=== PATIENT | male | born 1960 | race Two or more races ===

== ENCOUNTER 2018-04-03 10:01 | Inpatient (IN) | payer OTHER ==
[~2018-04-03] VITALS: Ht 170.2 cm; Wt 88.0 kg
[2018-04-03] MEDS ORDERED: LEVO-T25 MCG PO (13:58)
[2018-04-03] MEDS ORDERED: METFORMIN HCL500 MG PO (13:58)
[2018-04-03] MEDS ORDERED: GABAPENTIN800 MG PO (13:58)
[2018-04-03] MEDS ORDERED: TRAMADOL HCL50 MG PO (13:59)
[2018-04-03] MEDS ORDERED: GLYCOTROL CAPS1 EACH PO (13:59)
[2018-04-03] MEDS ORDERED: VITAMIN D31000 UNI1 PO (14:00)
[2018-04-11] MEDS ORDERED: GABAPENTIN800 MG PO (09:50)
[2018-04-11] MEDS ORDERED: DOCUSATE SODIU100 MG PO (09:50)
[2018-04-11] MEDS ORDERED: AMOX-CLAV 875-1 EACH PO (09:51)
[2018-04-11] MEDS ORDERED: PERCOCET 5-3251 EACH PO (09:52)
[2018-04-11] MEDS ORDERED: CLONAZEPAM1 MG PO (09:52)
== END 2018-04-11 13:45 | disposition home or self-care (01) | DRG 460 ==
LOC: SURG 04-10 05:12 → O/R 04-10 05:12 → SURH 04-10 10:15 → SURG 04-10 17:50
PROVIDERS: Orthopaedic Surgery Orthopaedic Surgery of the Spine
PROC: 0SG10AJ Fusion of 2 or more Lumbar Vertebral Joints with Interbody Fusion Device, Posterior Approach, Anterior Column, Open Approach (ICD-10-PCS; 2018-04-10)
PROC: 0ST20ZZ Resection of Lumbar Vertebral Disc, Open Approach (ICD-10-PCS; 2018-04-10)
PROC: 07DS3ZZ Extraction of Vertebral Bone Marrow, Percutaneous Approach (ICD-10-PCS; 2018-04-10)
PROC: 0SG10A0 Fusion of 2 or more Lumbar Vertebral Joints with Interbody Fusion Device, Anterior Approach, Anterior Column, Open Approach (ICD-10-PCS; principal; 2018-04-10 10:15)
DX: M47.26 Other spondylosis with radiculopathy, lumbar region (principal); M48.061 Spinal stenosis, lumbar region without neurogenic claudication; M51.16 Intervertebral disc disorders with radiculopathy, lumbar region; E03.8 Other specified hypothyroidism; E11.9 Type 2 diabetes mellitus without complications